=== PATIENT | male | born 1980 | race Caucasian/White ===

== ENCOUNTER 2023-03-16 16:29 | Outpatient (OUT) | payer OTHER, SELFPAY ==
--- NOTE | 2023-03-16 | XR_ITS ---
The [address] [address] Patient Name: ROLANDA DAWSON MRN: [id number] date: 1980 Sex: M Assigned Patient Location: RAD Current Patient Location: Accession/Order Number: [id number] Exam Date: 03/16/2023 16:38 Report Date: 03/17/2023 11:07 At the request of: WILMAN FRANCIS Procedure: XR foot LT min 3V EXAM: XR foot LT min 3V HISTORY: M79.672 PAIN OF LEFT HEEL COMPARISON: None. TECHNIQUE: Routine views of the XR foot LT min 3V FINDINGS/ XR/XR foot LT min 3V IMPRESSION: 1. No acute fractures. Small plantar calcaneal spur. 2. Unremarkable soft tissues. 3. Minimal first MTP osteoarthritis. Electronically authenticated by: CARLTON HUI Date: 03/17/2023 11:07
== END 2023-03-16 16:30 | disposition home or self-care (01) ==
PROVIDERS: PCP Family Medicine; Visit Provider Family Medicine
DX: M79.672 Pain in left foot (principal); M77.32 Calcaneal spur, left foot
CPT/HCPCS: 73630

== ENCOUNTER 2023-03-24 14:01 | Outpatient (OUT) | payer OTHER, SELFPAY ==
--- NOTE | 2023-03-24 | XR_ITS ---
[address] [address] Patient Name: ROLANDA DAWSON MRN: [id number] date: 1980 Sex: M Assigned Patient Location: [facility] Current Patient Location: Accession/Order Number: [id number] Exam Date: 03/24/2023 14:10 Report Date: 03/25/2023 17:36 At the request of: VELIA CORDOVA Procedure: XR foot LT min 3V EXAM: XR foot LT min 3V HISTORY: LEFT FOOT PAIN COMPARISON: 03/16/2023 FINDINGS/IMPRESSION: 1. No acute fracture or dislocation 2. Normal alignment of the joints of the foot. 3. Small calcaneal plantar enthesophyte. 4. Mild degeneration at the talonavicular articulation with small dorsal osteophyte. 5. No ankle joint effusion. Electronically authenticated by: BRADLY CHAVIRA Date: 03/25/2023 17:36
== END 2023-03-24 14:02 | disposition home or self-care (01) ==
LOC: RAD 14:01
PROVIDERS: PCP Family Medicine; Visit Provider Podiatrist Foot & Ankle Surgery
DX: M79.672 Pain in left foot (principal)
CPT/HCPCS: 73630